=== PATIENT | female | born 1985 | race Caucasian/White ===

== ENCOUNTER 2017-06-14 16:56 | Inpatient (IN) | payer BC ==
[~2017-06-14] VITALS: Ht 170.2 cm; Wt 95.0 kg
[~2017-06-14 16:56] MED LIST: PRENTAB26 PO
[2017-06-14] MEDS ORDERED: LACTATED RINGER'S 1000ML 1,000 ML IV PRN (18:05)
[2017-06-14] MEDS ORDERED: LACTATED RINGER'S 1000ML 1,000 ML IV SCH (18:05)
[2017-06-14] MEDS ORDERED: CALCIUM CARBONATE 500 MG CHEWABLE PO PRN (18:30)
[2017-06-14 18:38] VITALS: Ht 170.2 cm; Wt 95.0 kg
[2017-06-14 18:50] LABS: HEMATOCRIT 36.4 % (37-47); MEAN CELL VOLUME 83.7 fL (80-100); MEAN CORPUSCULAR HEMOGLOBIN 27.1 pg (25-34); MEAN CORPUSCULAR HGB CONC 32.4 g/dl (32-36); MEAN PLATELET VOLUME 12.4 fL (7.4-10.4); PLATELET COUNT 189 K/uL (130-400); RED BLOOD COUNT 4.35 M/uL (4.2-5.4); WHITE BLOOD COUNT 12.22 K/uL (4.8-10.8)
[2017-06-14] MEDS ORDERED: OXYTOCIN 30 UNITS/500ML NSS IV ONE (19:12)
--- NOTE | 2017-06-14 20:16 | HISTORY & PHYSICAL EXAMINATION ---
DATE OF ADMISSION: 06/14/2017 HISTORY OF PRESENT ILLNESS: The patient is a 31-year-old G4, P2, due date 06/14/2017 making exactly 40 weeks today. Presented to labor and delivery with contractions every 2-4 minutes. Pelvic exam done shows she is 4-5 cm, 70%, and -3. The patient has been admitted for labor. heart rate is category 1. No shortness of breath, no chills, no fever. COURSE: Has been unremarkable. LABS: Blood type O positive, antibody negative, rubella immune, GBS negative, RPR nonreactive. PAST MEDICAL HISTORY: History of anxiety and depression. PAST SURGICAL HISTORY: History of laparoscopy and dental surgery. 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 weighed 7 pounds 12 ounces and 8 pounds respectively. SOCIAL HISTORY: The patient denies tobacco, drug or alcohol use. PHYSICAL EXAMINATION: GENERAL: Well-developed, well-nourished white female in labor discomfort. HEART: S1, S2, regular rhythm and rate. LUNGS: Clear to auscultation bilaterally. ABDOMEN: Gravid. heart rate is category 1. PELVIC: She is 4-5 cm, 70% effaced and -3 station. EXTREMITIES: No cyanosis, clubbing or edema. ASSESSMENT AND PLAN: A 31-year-old G4, P2 in labor. Plan is to admit patient and anticipate vaginal delivery.
[2017-06-14] MEDS ORDERED: ACETAMINOPHEN 325 MG TAB PO PRN (20:30)
[2017-06-14] MEDS ORDERED: OXYCODONE/ACETAMINOPHEN 5-325 TAB PO PRN (20:30)
[2017-06-14] MEDS ORDERED: OXYTOCIN 30 UNITS/500ML NSS IV PRN (20:30)
[2017-06-14] MEDS ORDERED: ACETAMINOPHEN/CODEINE 300/30MG TAB PO PRN ×2 (20:30)
[2017-06-14] MEDS ORDERED: BENZOCAINE 20% AER SPR 82.5 GM CAN EXT PRN (20:30)
[2017-06-14] MEDS ORDERED: LANOLIN OINT EXT PRN ×2 (20:30)
[2017-06-14] MEDS ORDERED: HYDROCORTISONE ACETATE 25 MG SUPP PR PRN (20:30)
[2017-06-14] MEDS ORDERED: SUPERCREAM 0.870 % 15GM JAR EXT PRN (20:30)
[2017-06-14] MEDS: IBUPROFEN 600 MG TAB PO PRN (21:10)
--- NOTE | 2017-06-14 22:49 | DELIVERY SUMMARY ---
DATE OF OPERATION: 06/14/2017 The patient delivered a live infant female in right occiput anterior presentation. was delivered. Cord was clamped and cut and handed over to the nursery team. The patient was known to have moderate meconium at the time of delivery. 's weight and Apgars in the delivery and pediatric note. Placenta was spontaneously delivered after cord gas was obtained. Inspection of the perineum showed no lacerations or tears. Perineum was completely intact. ESTIMATED BLOOD LOSS: 400 mL. Baby and mother are doing well in recovery. I attest to the content of the Intraoperative Record and any orders documented therein. Any exception s are noted below.
[2017-06-14 23:00] VITALS: BP 146/89; PULSE 80; TEMP 36.7
[2017-06-15] MEDS: IBUPROFEN 600 MG TAB PO PRN ×4 (03:21→20:22)
[2017-06-15 03:30] VITALS: BP 118/78; PULSE 80; TEMP 36.8
[2017-06-15 07:15] VITALS: BP 123/75; PULSE 75; TEMP 36.5; O2SAT 99
[2017-06-15] MEDS: DOCUSATE SODIUM 100 MG CAP PO SCH ×2 (07:25→20:22)
[2017-06-15] MEDS ORDERED: PRENATAL VITAMIN TAB PO SCH (08:00)
[2017-06-15] MEDS ORDERED: FERROUS SULFATE 325 MG TAB PO SCH (08:00)
[2017-06-15] MEDS ORDERED: MEASLES, MUMPS & RUBELLA VIRUS VIAL SQ. ONE (09:00)
[2017-06-15] MEDS ORDERED: DIPHTHERIA/TETANUS/PERTUSSIS 0.5 ML SYR/VIAL IM. ONE (09:00)
--- NOTE | 2017-06-15 09:12 | OB/GYN Progress Note ---
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 Subjective conversation w/ patient, physical exam Ambulation: ambulating normally Voiding: no voiding problems Passing Gas: Yes Diet Tolerance: Regular Diet [place]ochia: Moderate Feeding Type: Breast Feeding Review of Systems Constitutional: No fever, No chills, No sweats, No weight loss, No weakness, No fatigue, No problem reported Respiratory: No cough, No sputum, No wheezing, No shortness of breath, No dyspnea on exertion, No dyspnea at rest, No hemoptysis, No problem reported Cardiac: No chest pain, No orthopnea, No PND, No edema, No claudication, No palpitations, No problem reported Breast: No see HPI, No breast lump, No change in shape, No nipple discharge, No breast pain, No problem reported Abdomen: No pain, No nausea, No vomiting, No diarrhea, No constipation, No GI bleeding, No problem reported Female : No see HPI, No dysuria, No urinary frequency, No hematuria, No incontinence, No abnormal vaginal bleeding, No vaginal discharge, No problem reported Objective Vital Signs Date Time Temp Pulse Resp B/P (MAP) Pulse Ox O2 Delivery O2 Flow Rate FiO2 06/15/17 07:15 36.5 75 16 123/75 (91) 99 Room Air 06/15/17 07:15 99 Room Air 06/15/17 03:30 36.8 80 20 118/78 (91) Room Air 06/14/17 23:00 36.7 80 18 146/89 (108) Room Air 06/14/17 23:00 Room Air Physical Exam General Appearance: WELL-APPEARING, WD/WN, NO APPARENT DISTRESS, uncomfortable Respiratory/Chest: chest non-tender, lungs clear, normal breath sounds, no respiratory distress, no accessory muscle use Cardiovascular: regular rate, rhythm, no edema, no gallop, no JVD, no murmur Abdomen: normal bowel sounds, non tender, soft, no organomegaly, no pulsatile mass Fundus: Firm Extremities: normal range of motion, non-tender, normal inspection, no pedal edema, no calf tenderness Laboratory Results Last 24 Hours Test 06/14/17 18:38 06/15/17 06:33 White Blood Count 12.22 K/uL Red Blood Count 4.35 M/uL Hemoglobin 11.8 g/dL 10.3 g/dL Hematocrit 36.4 % 32.0 % Mean Corpuscular Volume 83.7 fL Mean Corpuscular Hemoglobin 27.1 pg Mean Corpuscular Hemoglobin Concent 32.4 g/dl RDW Standard Deviation 43.4 fL RDW Coefficient of Variation 14.1 % Platelet Count 189 K/uL Mean Platelet Volume 12.4 fL Assessment and Plan Day Number: 1 Continue Routine Care: VD Day #1 pt doing well anticipate disch in the AM
[2017-06-15 12:10] VITALS: BP 118/75; PULSE 79; TEMP 36.8
[2017-06-15] MEDS ORDERED: MTR600X PO (15:04)
--- NOTE | 2017-06-15 15:05 | Discharge Instructions ---
Discharge Instructions Date of Service Jun 15, 2017. Admission Reason for Admission: Check Labor Discharge Discharge Diagnosis / Problem: Discharge Goals Goal(s): Routine recovery after delivery Activity Recommendations Activity Limitations: as noted below ACTIVITY RECOMMENDATIONS: * Gradual return to full activity over the next 2-3 weeks. * No lifting - nothing heavier than baby over the next 2-3 weeks. * Do not engage in vigorous exercise, sexual activity or sports until cleared by your physician. * Do not drive or operate any motorized equipment until cleared by your physician. * You may shower/bathe daily. BREAST CARE: If you are not breast feeding: * Wear a supportive bra 24 hours a day for one to two weeks. * Avoid stimulating your breasts and nipples as much as possible during the first few weeks after delivery. * When taking a shower, have the warm water hit your back, not breasts. * When your breasts feel full, apply ice packs. Usually three to four times a day helps ease the discomfort. * Take a mild pain medication (Tylenol/Motrin) when you are uncomfortable. If breast feeding: * Use breast milk to lubricate nipples. Lansinoh cream may be used for sore nipples. You do not need to remove cream prior to breast feeding. If using a different brand of cream, check the label for directions regarding removal of cream prior to nursing. * Wear a supportive bra. * If having problems with breasts or breast feeding, call a insolvency consultant or your health care provider. EPISIOTOMY CARE: After delivery, if you have an episiotomy (stitches), the following steps will ease discomfort and aid healing. * For the first 24 hours after delivery, place ice packs next to your episiotomy to help reduce swelling. * After the first 24 hour-period, sitz baths, either portable or in the tub, are suggested. A shower with a shower arm sprayed over the episiotomy may be comforting. * Mary care should be done after each voiding and bowel movement. Squirt warm water from a plastic bottle over the perineum (region of the body between the anus and urinary opening) and pat dry. * Use Dermoplast to ease discomfort. Shake container. [place] directly over the episiotomy. * Place a Tucks on a clean sanitary pad next to your episiotomy. OVER THE COUNTER MEDICATION: * For discomfort or pain, you may use Acetaminophen (Tylenol), Ibuprofen (Advil ), or Naproxen (Aleve) following the package directions. * For constipation you may use Colace following the package directions. SPECIAL CARE INSTRUCTIONS: When you are discharged from the hospital, it is important for you to follow the instructions listed below: * During the first week at home, you should be able to care for yourself and your baby. In addition, the usual light household activities are encouraged. * Limit your activities to the way you feel. Do not try to clean the house or move furniture. Be sensible. * If you actively engage in sports and have done so up until the time of your delivery, you may resume these activities as soon as you feel able. This may take up to one month or even longer. Use good judgment. * Continue to take your vitamins for at least six weeks after the of your baby. * Your diet need not be limited unless you were on a special diet before your delivery. Breast-feeding mothers need around 2500 calories per day and at least 64-80 ounces of fluid per day (8 to 10 glasses). * You should eat foods from the four major food groups. Crash diets or fad diets are to be avoided. Eating lean meats, fresh fruits and vegetables, low-fat dairy products, high fiber foods and a regular exercise program, will help you get back to your pre- weight without putting your health at risk. * Constipation is sometimes a problem after delivery. Take a mild laxative as needed. If breast feeding, Milk of Magnesia is acceptable to use. You may use a suppository or Fleets enema if no episiotomy. * A daily shower or tub bath is suggested. Be sure to thoroughly and gently dry the perineum. * A bloody vaginal discharge will usually continue until around four weeks post . A small amount of bleeding may continue for as long as six weeks. Vaginal discharge changes from the bright red bleeding after delivery to pink then brownish and finally yellowish-pink before becoming white and disappearing. * Bleeding may increase with activity. Your first period may come in 4-8 weeks. If you are breast feeding, your period may be delayed even longer. * [place] (sex) can begin whenever both you and your partner feel comfortable and do not have any form of genital infection. It is recommended that you wait until after your return appointment and discuss with your physician. If you have questions, please talk to your health care practitioner. A condom should be used to prevent infection and . * Foreplay, gentle intercourse and lubrication is very important the first several times to prevent pain. A water-based lubricant such as K-Y jelly or Astroglide may be used. * Tampons may be used six weeks after delivery. * Douching should be avoided for 6 weeks after delivery. * If you have RH negative blood and your baby is RH positive, you will receive RHOGAM by injection prior to discharge. The nurse will give you a card to keep with you that has the date and place that you received RHOGAM after delivery. * During your care, you had a Rubella screen done to check for the presence of rubella antibodies in your blood. If your test was negative, you will receive a Rubella vaccine prior to discharge. This vaccine may cause a fever, soreness at the injection site and flu-like symptoms. If these symptoms persist, notify your health care practitioner. is not advised for three months after a Rubella vaccine. There is a higher chance of having a baby with defects if conceived within three months of getting the vaccine. * If you were discharged 24 hours from delivery or before 48 hours: Visiting nurses will come to your home 48 hours after discharge to assess you and your baby. The visiting nurse will meet with you while you are in the hospital to arrange a time and get directions to your home. * Verbalizes understanding of car seat law as reviewed with patient nursing. * Car Seat hand-out given and reviewed with patient by nursing. * Shaken baby information reviewed with patient by nursing. Call you doctor if: * Heavy bleeding (saturating several pads an hour) or passing clots the size of your fist. * A fever >101 degrees F (38.3 degrees C) on two occasions four hours apart and/or chills. * Unusual pain in the pelvic or vaginal areas. * "Baby Blues" lasting longer than two weeks. If you have any questions or concerns, call your health care practitioner at . FOLLOW-UP VISIT: * Please call the office at to schedule a 6 week examination. It is important you keep this appointment. * It is important for you to make arrangements for either yearly or twice yearly check-ups thereafter. . Current Hospital Diet Patient's current hospital diet: Regular OB Diet Discharge Diet Recommended Diet: Regular Diet Pending Studies Studies pending at discharge: no Medical Emergencies . Who to Call and When: Medical Emergencies: If at any time you feel your situation is an emergency, please call 911 immediately. . Non-Emergent Contact Non-Emergency issues call your: Specialist . . "Provider Documentation" section prepared by Joon Wood. . VTE Core Measure Inpt VTE Proph given/why not?: Treatment not indicated
[2017-06-15 16:15] VITALS: BP 121/81; PULSE 78; TEMP 36.7
[2017-06-15 19:25] VITALS: BP 115/78; PULSE 76; TEMP 36.3
[2017-06-15] MEDS ORDERED: BISACODYL 5 MG TABEC PO SCH (20:00)
[2017-06-15 20:55] VITALS: BP_DIAS 78; PULSE 76; TEMP 36.3
[2017-06-16] MEDS ORDERED: BISACODYL 10 MG SUPP PR PRN (07:00)
== END 2017-06-15 20:55 | disposition home or self-care (01) | DRG 775 ==
LOC: C.LD 16:56 → C.OPB 16:56 → C.LD 20:21 → C.OBG 22:44
PROVIDERS: ADMIT Obstetrics & Gynecology; ATTEND Obstetrics & Gynecology
PROC: 10E0XZZ Delivery of Products of Conception, External Approach (ICD-10-PCS; principal; 2017-06-14)
DX: O80 Encounter for full-term uncomplicated delivery (principal); Z3A.40 40 weeks gestation of pregnancy; Z37.0 Single live birth

== ENCOUNTER 2020-06-11 02:05 | Inpatient (IN) ==
[2020-06-11] MEDS ORDERED: OXYTOCIN 30 UNITS/500 ML BAG IV PRN ×3 (03:02→22:06)
[2020-06-11] MEDS ORDERED: CALCIUM CARBONATE 500 MG CHEWABLE TAB ONE (03:36)
[2020-06-11 03:47] LABS: Hematocrit (blood only) 36.2 % (37-47); Hemoglobin 12.2 g/dL (12.0-16.0); Mean Corpuscular Hemoglobin 28.6 pg (25-34); Mean Platelet Volume 12.3 fL (7.4-10.4); Platelet Count 144 K/uL (130-400); RDW Coefficient of Variation 14.4 % (11.5-14.5); RDW Standard Deviation 44.8 fL (36.4-46.3); Red Blood Count 4.26 M/uL (4.2-5.4); White Blood Count 9.19 K/uL (4.8-10.8)
[2020-06-11 04:00] LABS: Mean Corpuscular Hgb Conc 33.7 g/dL (32-36)
--- NOTE | 2020-06-11 07:38 | Obstetrical Progress Note ---
Date of Service June 11, 2020 Assessment & Plan Admission and Anticipated Discharge Date Admission Date: June 11, 2020 Physical Exam Physical Exam: Admit Note 34 F [id number] at39.3 weeks admitted with SROM thin meconium fluid. Patient with irregular contractions. GBS is negative, FHT Cat 1. Cervix 1.5/60/-2. Will anticipate normal delivery. Results & Data ([facility]) Vital Signs (Past 12 Hours) Vital Signs Temp Pulse Resp BP 06/11/20 07:03 37.0 C 95 H 20 130/79 06/11/20 04:40 36.7 C 18 06/11/20 02:26 36.8 C 18 06/11/20 02:25 67 125/77
--- NOTE | 2020-06-11 07:44 | Obstetrical Progress Note ---
Date of Service June 11, 2020 Assessment & Plan Admission and Anticipated Discharge Date Admission Date: June 11, 2020 Physical Exam Genitourinary: Manual OB Exam: + cervical dilation 2 cm, + cervical effacement 60% and + station high OB Exam Monitor Tracing: + external FHT monitor used, + external uterine monitor used, + category I and + normal FHT variability will start Oxytocin to augment contractions Results & Data ([facility]) Vital Signs (Past 12 Hours) Vital Signs Temp Pulse Resp BP 06/11/20 07:03 37.0 C 95 H 20 130/79 06/11/20 04:40 36.7 C 18 06/11/20 02:26 36.8 C 18 06/11/20 02:25 67 125/77
[2020-06-11] MEDS: LACTATED RINGER'S 1,000 ML IV PRN ×3 (08:04→18:45)
[2020-06-11] MEDS: CALCIUM CARBONATE 500 MG CHEWABLE TAB PO PRN ×2 (08:06→16:37)
--- NOTE | 2020-06-11 13:24 | Obstetrical Progress Note ---
Date of Service June 11, 2020 Assessment & Plan Admission and Anticipated Discharge Date Admission Date: June 11, 2020 Physical Exam Genitourinary: Manual OB Exam: + cervical dilation 3 cm, + cervical effacement 80% and + station -2 OB Exam Monitor Tracing: + external FHT monitor used, + external uterine monitor used, + category I and + normal FHT variability Results & Data ([facility]) Vital Signs (Past 12 Hours) Vital Signs Temp Pulse Resp BP 06/11/20 12:55 37.2 C 90 20 102/67 06/11/20 11:55 74 111/58 L 06/11/20 10:55 36.9 C 81 20 137/70 06/11/20 09:57 76 122/57 L 06/11/20 08:57 36.9 C 72 20 109/63 06/11/20 07:55 82 117/63 06/11/20 07:03 37.0 C 95 H 20 130/79 06/11/20 04:40 36.7 C 18 06/11/20 02:26 36.8 C 18 06/11/20 02:25 67 125/77
[2020-06-11] MEDS ORDERED: ePHEDrine sulfate 50 MG/ML AMP ONE (14:27)
[2020-06-11] MEDS ORDERED: fentaNYL 2MCG/ML ROPIV 1.25MG/ML 100 ML BAG EPI ONE (14:27)
[2020-06-11] MEDS ORDERED: fentaNYL citrate 100 MCG/2 ML VIAL ONE (14:27)
[2020-06-11] MEDS ORDERED: BUPIVACAINE 0.25% 30 ML VIAL ONE (14:27)
--- NOTE | 2020-06-11 14:50 | Anesthesiology Consultation ---
Date of Service June 11, 2020 Assessment & Plan (1) Encounter for pre-operative examination: History Height/Weight Height: 5 ft 7 in Weight: 92.533 kg Allergies Allergy/AdvReac Type Severity Reaction Status Date / Time No Known Allergies Allergy Verified 06/11/20 02:40 Medications Home Medications Medication Instructions Recorded Confirmed Last Taken Multivit/Min/Iron/Fol Ac/Pren 1 tab PO DAILY #0 12/07/11 06/11/20 06/09/20 ( Vitamin) sertraline [Zoloft] 50 mg PO DAILY 06/11/20 06/11/20 06/09/20 Active Medications Generic Name Dose Route Start Last Admin Trade Name Freq PRN Reason Stop Dose Admin Calcium Carbonate 500 mg 06/11/20 03:37 06/11/20 08:06 Calcium Carbonate 500 Mg Chewable Tab PO 07/11/20 03:36 500 mg Q4 PRN Administration Indigestion Lactated Ringer's 1,000 mls @ 125 mls/hr 06/11/20 03:02 06/11/20 14:34 Lr IV 06/13/20 03:01 999 mls/hr .Q8H PRN Administration L&D Protocol Protocol Oxytocin 30 units in 500 mls @ 13 mls/hr 06/11/20 07:42 06/11/20 12:00 Pitocin IV 06/13/20 07:41 0.78 units/hr .Q24H PRN 13 mls/hr Labor Induction/Augmentation Titration Protocol 0.78 UNITS/HR Past Medical History Medical History (Updated 06/11/20 @ 14:50 by Nyla Epps MD) GERD (gastroesophageal reflux disease) No known health problems Social History Smoking Status: Never smoker Hx Alcohol Use: No Hx Substance Use: No Physical Exam Vital Signs Last Vital Signs Temp 37.2 C 06/11/20 12:55 Pulse 88 06/11/20 14:48 Resp 20 06/11/20 12:55 BP 141/74 H 06/11/20 14:48 Pulse Ox 100 06/11/20 14:48 Testing Laboratory Results 06/11/20 03:26
[2020-06-11] MEDS ORDERED: ONDANSETRON INJ 2 MG/ML 2 ML VIAL IV PRN (15:28)
[2020-06-11] MEDS ORDERED: fentaNYL 2MCG/ML ROPIV 1.25MG/ML 100 ML BAG EPI PRN (15:28)
[2020-06-11] MEDS ORDERED: NALOXONE HCL 1 MG in SODIUM CHLORIDE 0.9% 1000ML 1,000 ML IV PRN (15:28)
[2020-06-11] MEDS ORDERED: ePHEDrine sulfate 50 MG/ML AMP IV PRN (15:28)
[2020-06-11] MEDS ORDERED: DiphenhydrAMINE HCL 50 MG/ML VIAL IV PRN (15:28)
[2020-06-11] MEDS ORDERED: NALOXONE HCL 0.4 MG/1 ML VIAL/CARP IV PRN (15:28)
--- NOTE | 2020-06-11 16:39 | Obstetrical Progress Note ---
Date of Service June 11, 2020 Assessment & Plan Admission and Anticipated Discharge Date Admission Date: June 11, 2020 Physical Exam Genitourinary: Manual OB Exam: + cervical dilation 4 cm, + cervical effacement 90% and + station -2 OB Exam Monitor Tracing: + external FHT monitor used, + external uterine monitor used, + category I and + normal FHT variability Results & Data [facility]) Vital Signs (Past 12 Hours) Vital Signs Temp Pulse Resp BP Pulse Ox 06/11/20 16:35 109 H 107/69 06/11/20 16:33 103 H 98 06/11/20 16:28 114 H 99 06/11/20 16:27 91 H 94 06/11/20 16:23 87 95 06/11/20 16:20 84 94 06/11/20 16:19 96 H 104/60 06/11/20 16:18 85 94 06/11/20 16:14 96 H 94 06/11/20 16:13 97 H 97 06/11/20 16:09 85 94 06/11/20 16:08 89 97 06/11/20 16:07 84 105/60 06/11/20 16:03 96 H 96 06/11/20 15:59 20 06/11/20 15:58 83 97 06/11/20 15:53 86 96 06/11/20 15:51 84 110/63 06/11/20 15:48 81 95 06/11/20 15:44 20 06/11/20 15:43 92 H 97 06/11/20 15:38 80 97 06/11/20 15:34 87 111/62 06/11/20 15:33 81 96 06/11/20 15:29 20 06/11/20 15:28 87 98 06/11/20 15:26 85 114/57 L 06/11/20 15:24 103 H 121/59 L 06/11/20 15:23 93 H 109/57 L 96 06/11/20 15:21 80 110/55 L 06/11/20 15:19 83 116/59 L 06/11/20 15:18 106 H 98 06/11/20 15:13 99 H 98 06/11/20 15:11 95 H 120/73 06/11/20 15:08 98 H 97 06/11/20 15:06 98 H 154/67 H 06/11/20 15:03 97 H 98 06/11/20 14:58 86 99 06/11/20 14:55 90 139/70 06/11/20 14:53 98 H 98 06/11/20 14:48 36.8 C 88 20 141/74 H 100 06/11/20 13:52 75 115/60 06/11/20 12:55 37.2 C 90 20 102/67 06/11/20 11:55 74 111/58 L 06/11/20 10:55 36.9 C 81 20 137/70 06/11/20 09:57 76 122/57 L 06/11/20 08:57 36.9 C 72 20 109/63 06/11/20 07:55 82 117/63 06/11/20 07:03 37.0 C 95 H 20 130/79 06/11/20 04:40 36.7 C 18
--- NOTE | 2020-06-11 20:15 | Obstetrical Progress Note ---
Date of Service June 11, 2020 Assessment & Plan Admission and Anticipated Discharge Date Admission Date: June 11, 2020 Physical Exam Genitourinary: Manual OB Exam: + cervical dilation 5 cm, + cervical effacement 80% and + station -2 OB Exam Monitor Tracing: + external FHT monitor used, + external uterine monitor used, + category I and + normal FHT variability Results & Data ([facility]) Vital Signs (Past 12 Hours) Vital Signs Temp Pulse Resp BP Pulse Ox 06/11/20 20:08 110 H 96 06/11/20 20:06 115 H 118/59 L 06/11/20 20:03 108 H 98 06/11/20 19:58 104 H 97 06/11/20 19:53 101 H 98 06/11/20 19:50 107 H 105/59 L 06/11/20 19:48 107 H 97 06/11/20 19:43 104 H 96 06/11/20 19:42 107 H 94 06/11/20 19:38 105 H 97 06/11/20 19:34 104 H 100/61 06/11/20 19:33 104 H 96 06/11/20 19:28 104 H 96 06/11/20 19:23 99 H 96 06/11/20 19:20 103 H 113/59 L 06/11/20 19:18 100 H 98 06/11/20 19:16 36.9 C 18 06/11/20 19:13 111 H 96 06/11/20 19:08 109 H 98 06/11/20 19:05 97 H 126/62 06/11/20 19:03 101 H 98 06/11/20 18:59 20 06/11/20 18:58 101 H 98 06/11/20 18:53 95 H 98 06/11/20 18:50 98 H 116/59 L 06/11/20 18:48 97 H 98 06/11/20 18:43 94 H 96 06/11/20 18:39 97 H 93 06/11/20 18:38 89 95 06/11/20 18:36 95 H 122/64 06/11/20 18:33 98 H 97 06/11/20 18:29 36.8 C 20 06/11/20 18:28 92 H 99 06/11/20 18:23 95 H 97 06/11/20 18:20 88 120/59 L 06/11/20 18:18 106 H 96 06/11/20 18:13 95 H 98 06/11/20 18:08 101 H 97 06/11/20 18:05 98 H 114/60 06/11/20 18:03 94 H 96 06/11/20 17:59 18 06/11/20 17:58 95 H 97 06/11/20 17:53 94 H 97 06/11/20 17:50 90 117/69 06/11/20 17:48 91 H 97 06/11/20 17:43 111 H 97 06/11/20 17:38 101 H 96 06/11/20 17:37 97 H 112/60 06/11/20 17:33 107 H 97 06/11/20 17:29 18 06/11/20 17:28 102 H 96 06/11/20 17:23 99 H 98 06/11/20 17:20 105 H 107/62 06/11/20 17:18 104 H 97 06/11/20 17:14 18 06/11/20 17:13 103 H 97 06/11/20 17:08 110 H 97 06/11/20 17:05 102 H 108/59 L 06/11/20 17:03 102 H 97 06/11/20 16:59 20 06/11/20 16:58 100 H 97 06/11/20 16:53 101 H 97 06/11/20 16:51 96 H 106/56 L 06/11/20 16:50 36.8 C 20 06/11/20 16:48 102 H 97 06/11/20 16:44 20 06/11/20 16:43 99 H 97 06/11/20 16:38 101 H 97 06/11/20 16:35 109 H 107/69 06/11/20 16:33 103 H 98 06/11/20 16:28 114 H 20 99 06/11/20 16:27 91 H 94 06/11/20 16:23 87 95 06/11/20 16:20 84 94 06/11/20 16:19 96 H 104/60 06/11/20 16:18 85 94 06/11/20 16:14 96 H 20 94 06/11/20 16:13 97 H 97 06/11/20 16:09 85 94 06/11/20 16:08 89 97 06/11/20 16:07 84 105/60 06/11/20 16:03 96 H 96 06/11/20 15:59 20 06/11/20 15:58 83 97 06/11/20 15:53 86 96 06/11/20 15:51 84 110/63 06/11/20 15:48 81 95 06/11/20 15:44 20 06/11/20 15:43 92 H 97 06/11/20 15:38 80 97 06/11/20 15:34 87 111/62 06/11/20 15:33 81 96 06/11/20 15:29 20 06/11/20 15:28 87 98 06/11/20 15:26 85 114/57 L 06/11/20 15:24 103 H 121/59 L 06/11/20 15:23 93 H 109/57 L 96 06/11/20 15:21 80 110/55 L 06/11/20 15:19 83 116/59 L 06/11/20 15:18 106 H 98 06/11/20 15:13 99 H 98 06/11/20 15:11 95 H 120/73 06/11/20 15:08 98 H 97 06/11/20 15:06 98 H 154/67 H 06/11/20 15:03 97 H 98 06/11/20 14:58 86 99 06/11/20 14:55 90 139/70 06/11/20 14:53 98 H 98 06/11/20 14:48 36.8 C 88 20 141/74 H 100 06/11/20 13:52 75 115/60 06/11/20 12:55 37.2 C 90 20 102/67 06/11/20 11:55 74 111/58 L 06/11/20 10:55 36.9 C 81 20 137/70 06/11/20 09:57 76 122/57 L 06/11/20 08:57 36.9 C 72 20 109/63
[2020-06-11] MEDS ORDERED: ACETAMINOPHEN 325 MG TAB PO PRN (22:06)
[2020-06-11] MEDS ORDERED: BENZOCAINE 20% AER SPR 82.5 GM CAN EXT PRN (22:06)
[2020-06-11] MEDS ORDERED: SUPERCREAM 0.870% 15 GM JAR EXT PRN (22:06)
[2020-06-11] MEDS ORDERED: HYDROCORTISONE ACETATE 25 MG SUPP PR PRN (22:06)
[2020-06-11] MEDS ORDERED: DIPHTHERIA/TETANUS/PERTUSSIS 0.5 ML SYR/VIAL IM ONE (22:06)
[2020-06-11] MEDS ORDERED: bisacodyL 10 MG SUPP PR PRN (22:06)
--- NOTE | 2020-06-11 22:08 | Delivery Summary ---
Vaginal Delivery Summary Date of Service June 11, 2020 Vaginal Delivery Summary Delivery Note live male JOSHUA over intact perineum with delayed cord clamping Apgars 8/10 weight pending. Cord blood obtained followed by spontaneous delivery of intact placenta. No tears. EBL 200 ml. Final sponge and instrument count are correct. Mom and baby stable.
[2020-06-12] MEDS: IBUPROFEN 600 MG TAB PO PRN ×6 (00:42→20:42)
--- NOTE | 2020-06-12 01:05 | Anesthesia Procedure Note ---
Date of Service June 12, 2020 Anesthesia Post Epidural Note Vital Signs Vital Signs: Temp Pulse Resp BP Pulse Ox 36.8 C 93 H 18 114/66 99 06/12/20 00:30 06/12/20 00:30 06/12/20 00:30 06/12/20 00:30 06/12/20 00:30 Pain Intensity Bilateral Abdomen: Pain Intensity: 6 Notes Mental Status: alert / awake / arousable Nausea / Vomiting: adequately controlled Pain: adequately controlled Airway Patency, RR, SpO2: stable & adequate BP & HR: stable & adequate Hydration State: stable & adequate Neuraxial Anesthesia: was administered and sensory block is resolving Anesthetic Complications: no major complications apparent and Pt Satisfied with anesthetic care Epidural: Removed without complications and With tip intact
[2020-06-12 06:46] LABS: Hematocrit (blood only) 34.4 % (37-47); Hemoglobin 11.2 g/dL (12.0-16.0); Mean Corpuscular Hemoglobin 28.1 pg (25-34); Mean Corpuscular Hgb Conc 32.6 g/dL (32-36); Mean Corpuscular Volume 86.2 fL (80-100); Mean Platelet Volume 12.3 fL (7.4-10.4); Platelet Count 155 K/uL (130-400); RDW Coefficient of Variation 14.5 % (11.5-14.5); RDW Standard Deviation 45.4 fL (36.4-46.3); Red Blood Count 3.99 M/uL (4.2-5.4); White Blood Count 15.58 K/uL (4.8-10.8)
[2020-06-12] MEDS: PRENATAL VITAMIN 1 TAB PO SCH (08:05)
[2020-06-12] MEDS: DOCUSATE SODIUM 100 MG CAP PO SCH ×2 (08:05→20:19)
[2020-06-12] MEDS: FERROUS SULFATE 325 MG TAB PO SCH (08:05)
[2020-06-12] MEDS: SERTRALINE HCL 50 MG TABLET PO SCH (08:06)
--- NOTE | 2020-06-12 08:57 | Obstetrical Progress Note ---
Date of Service June 12, 2020 Assessment & Plan Admission and Anticipated Discharge Date Admission Date: June 11, 2020 Subjective Patient is seen and examined. She feels well, no complaints. Ambulating without dizziness Voiding without difficulty Tolerating regular diet with out N&V Bleeding is minimal No fever/ chills/ CP/ SOB/ N&V/ Leg pain Breast feeding without problems Vital Signs Temp Pulse Pulse Resp BP BP Pulse Ox 06/12/20 08:10 36.7 C 69 16 99/62 L 99 06/12/20 04:20 36.9 C 79 18 100/63 06/12/20 00:30 36.8 C 93 H 18 114/66 99 06/12/20 00:00 18 06/11/20 23:48 110 H 129/72 06/11/20 23:33 97 H 117/70 06/11/20 23:30 18 06/11/20 23:15 18 06/11/20 23:03 96 H 123/57 L 06/11/20 23:00 18 06/11/20 22:57 102 H 120/63 06/11/20 22:52 104 H 129/66 06/11/20 22:47 105 H 135/67 06/11/20 22:45 18 06/11/20 22:43 107 H 138/67 06/11/20 22:37 104 H 121/64 06/11/20 22:32 104 H 122/57 L 06/11/20 22:30 18 06/11/20 22:27 99 H 136/59 L 06/11/20 22:23 103 H 123/59 L 06/11/20 22:18 103 H 125/60 98 06/11/20 22:15 18 06/11/20 22:13 106 H 98 06/11/20 22:12 104 H 114/58 L 06/11/20 22:08 95 H 98 06/11/20 22:07 102 H 117/64 06/11/20 22:03 110 H 114/55 L 96 06/11/20 22:00 36.8 C 18 06/11/20 21:59 108 H 119/55 L 06/11/20 21:58 107 H 102/55 L 97 06/11/20 21:53 105 H 123/58 L 97 06/11/20 21:48 121 H 97 06/11/20 21:43 118 H 96/52 L 97 06/11/20 21:38 109 H 98 06/11/20 21:37 129 H 102/58 L 06/11/20 21:33 131 H 103/57 L 98 06/11/20 21:29 100 H 99/55 L 06/11/20 21:28 97 H 92 06/11/20 21:26 93 H 94 06/11/20 21:23 101 H 105/51 L 95 06/11/20 21:20 97 H 94 06/11/20 21:18 93 H 100/54 L 99 06/11/20 21:14 93 H 93 06/11/20 21:13 111 H 103/55 L 94 06/11/20 21:09 99 H 108/53 L 06/11/20 21:08 98 H 94 06/11/20 21:06 90 102/57 L 06/11/20 21:03 100 H 99 06/11/20 21:02 98 H 96/52 L 06/11/20 21:01 102 H 94 06/11/20 20:58 102 H 96 06/11/20 20:57 100 H 98/50 L Lab Results 06/11/20 06/12/20 Range/Units 03:26 06:22 WBC 9.19 15.58 H (4.8-10.8) K/uL RBC 4.26 3.99 L (4.2-5.4) M/uL Hgb 12.2 11.2 L (12.0-16.0) g/dL Hct 36.2 L 34.4 L (37-47) % MCV 85.0 86.2 (80-100) fL MCH 28.6 28.1 (25-34) pg MCHC 33.7 32.6 (32-36) g/dL RDW Std Deviation 44.8 45.4 (36.4-46.3) fL RDW Coeff of Odalis 14.4 14.5 (11.5-14.5) % Plt Count 144 155 (130-400) K/uL MPV 12.3 H 12.3 H (7.4-10.4) fL PE: General: Alert, orientedx3, NAD Abd: soft, NT, fundus firm, below Umbilicus Perineum intact, Lochia rubra minimal Ext; NT, no edema AP: 34 yo s/p , ppd# 1 VSS Afebrile doing well Continue routine care All questions were answered D/C home in am Results & Data ([facility]) Vital Signs (Past 12 Hours) Vital Signs Temp Pulse Pulse Resp BP BP Pulse Ox 06/12/20 08:10 36.7 C 69 16 99/62 L 99 06/12/20 04:20 36.9 C 79 18 100/63 06/12/20 00:30 36.8 C 93 H 18 114/66 99 06/12/20 00:00 18 06/11/20 23:48 110 H 129/72 06/11/20 23:33 97 H 117/70 06/11/20 23:30 18 06/11/20 23:15 18 06/11/20 23:03 96 H 123/57 L 06/11/20 23:00 18 06/11/20 22:57 102 H 120/63 06/11/20 22:52 104 H 129/66 06/11/20 22:47 105 H 135/67 06/11/20 22:45 18 06/11/20 22:43 107 H 138/67 06/11/20 22:37 104 H 121/64 06/11/20 22:32 104 H 122/57 L 06/11/20 22:30 18 06/11/20 22:27 99 H 136/59 L 06/11/20 22:23 103 H 123/59 L 06/11/20 22:18 103 H 125/60 98 06/11/20 22:15 18 06/11/20 22:13 106 H 98 06/11/20 22:12 104 H 114/58 L 06/11/20 22:08 95 H 98 06/11/20 22:07 102 H 117/64 06/11/20 22:03 110 H 114/55 L 96 06/11/20 22:00 36.8 C 18 06/11/20 21:59 108 H 119/55 L 06/11/20 21:58 107 H 102/55 L 97 06/11/20 21:53 105 H 123/58 L 97 06/11/20 21:48 121 H 97 06/11/20 21:43 118 H 96/52 L 97 06/11/20 21:38 109 H 98 06/11/20 21:37 129 H 102/58 L 06/11/20 21:33 131 H 103/57 L 98 06/11/20 21:29 100 H 99/55 L 06/11/20 21:28 97 H 92 06/11/20 21:26 93 H 94 06/11/20 21:23 101 H 105/51 L 95 06/11/20 21:20 97 H 94 06/11/20 21:18 93 H 100/54 L 99 06/11/20 21:14 93 H 93 06/11/20 21:13 111 H 103/55 L 94 06/11/20 21:09 99 H 108/53 L 06/11/20 21:08 98 H 94 06/11/20 21:06 90 102/57 L 06/11/20 21:03 100 H 99 06/11/20 21:02 98 H 96/52 L 06/11/20 21:01 102 H 94 06/11/20 20:58 102 H 96 06/11/20 20:57 100 H 98/50 L
[2020-06-12] MEDS ORDERED: NON-FORMULARY MEDICATION (Multivit/Min/Iron/Fol Ac/Pren (Prenatal Vitamin) 1 TAB) PO SCH (09:00)
[2020-06-12] MEDS ORDERED: bisacodyL 5 MG TABEC PO SCH (20:00)
[2020-06-12] MEDS: CALCIUM CARBONATE 500 MG CHEWABLE TAB PO PRN (20:42)
[2020-06-13 05:39] LABS: Basophils # (auto) 0.03 K/uL (0-0.2); Basophils % (auto) 0.3 %; Eosinophils % (auto) 2.9 %; Hematocrit (blood only) 32.7 % (37-47); Hemoglobin 11.1 g/dL (12.0-16.0); Immature Granulocytes # (auto) 0.06 K/uL (0.00-0.02); Immature Granulocytes % (auto) 0.6 %; Lymphocytes # (auto) 2.25 K/uL (1.2-3.4); Lymphocytes % (auto) 22.1 %; Mean Corpuscular Hemoglobin 29.4 pg (25-34); Mean Corpuscular Hgb Conc 33.9 g/dL (32-36); Mean Corpuscular Volume 86.7 fL (80-100); Mean Platelet Volume 11.3 fL (7.4-10.4); Monocytes # (auto) 0.71 K/uL (0.11-0.59); Neutrophils # (auto) 6.83 K/uL (1.4-6.5); Neutrophils % (auto) 67.1 %; Platelet Count 136 K/uL (130-400); RDW Coefficient of Variation 14.8 % (11.5-14.5); RDW Standard Deviation 45.9 fL (36.4-46.3); Red Blood Count 3.77 M/uL (4.2-5.4); White Blood Count 10.18 K/uL (4.8-10.8)
[2020-06-13] MEDS: IBUPROFEN 600 MG TAB PO PRN (06:53)
[2020-06-13] MEDS: DOCUSATE SODIUM 100 MG CAP PO SCH (08:29)
[2020-06-13] MEDS: FERROUS SULFATE 325 MG TAB PO SCH (08:29)
[2020-06-13] MEDS: PRENATAL VITAMIN 1 TAB PO SCH (08:29)
[2020-06-13] MEDS: SERTRALINE HCL 50 MG TABLET PO SCH (08:29)
--- NOTE | 2020-06-13 09:11 | Obstetrical Progress Note ---
Date of Service June 13, 2020 Assessment & Plan Admission and Anticipated Discharge Date Admission Date: June 11, 2020 Subjective Doing well passing gas tolerating diet out of bed Physical Exam Constitutional: WD/WN, vitals as above comfortable fundus firm non-tender no edema neg Dee's for d/c today Results & Data ([facility]) Vital Signs (Past 12 Hours) Vital Signs Temp Pulse Resp BP Pulse Ox 06/13/20 07:38 36.7 C 64 18 118/81 99 06/12/20 23:30 36.6 C 73 16 118/71 98 Laboratory Results Laboratory Results - last 72 hr 06/11/20 06/12/20 06/13/20 03:26 06:22 05:20 WBC 9.19 15.58 H 10.18 RBC 4.26 3.99 L 3.77 L Hgb 12.2 11.2 L 11.1 L Hct 36.2 L 34.4 L 32.7 L MCV 85.0 86.2 86.7 MCH 28.6 28.1 29.4 MCHC 33.7 32.6 33.9 RDW Std Deviation 44.8 45.4 45.9 RDW Coeff of Odalis 14.4 14.5 14.8 H Plt Count 144 155 136 MPV 12.3 H 12.3 H 11.3 H Immature Gran % (Auto) 0.6 Neut % (Auto) 67.1 Lymph % (Auto) 22.1 Clark % (Auto) 7.0 Eos % (Auto) 2.9 Baso % (Auto) 0.3 Neut # (Auto) 6.83 H Lymph # (Auto) 2.25 Clark # (Auto) 0.71 H Eos # (Auto) 0.30 Baso # (Auto) 0.03 Immature Gran # (Auto) 0.06 H
== END 2020-06-13 14:05 | disposition home or self-care (01) | DRG 807 ==
LOC: OPB 02:05 → 4S1 02:14 → 4S2 06-12 00:13